=== PATIENT | male | born 1970 | race Caucasian/White ===

== ENCOUNTER 2017-02-14 13:16 | Emergency (ER) | payer MEDICARE, OTHER ==
[~2017-02-14] VITALS: Ht 182.9 cm; Wt 145.0 kg
[~2017-02-14 13:16] MED LIST: 1-ME1LIQ PO; DILA100C; HYDR-2768 PO; TRAM50 PO
[2017-02-14 13:19] VITALS: BP 167/80; PULSE 87; RESP 18; TEMP 98.7; O2SAT 97
--- NOTE | 2017-02-14 13:50 | PD ---
HPI . right great toe blister x 1 day Chief Complaint: Skin Problem Time Seen by Provider: 13:50 Travel History International Travel<30 days: No Contact w/Intl Traveler<30days: No Traveled to known affect area: No History of Present Illness HPI 46-year-old male with history of gout and seizure disorder here with complaints of a right great toe blister that popped up all of a sudden about 1-2 nights ago. Patient says that he noticed his right great toe in the interdigital space seem to be inflamed and irritated. He does not recall stepping on anything or being bitten by an insect. He decided to come to the emergency department for further evaluation as he has difficult time getting in with his primary care provider. He denies any fever or chills. He has no known injuries. He is accompanied by his fiance. He has no other complaints. PFSH Past Medical History Arthritis: No Asthma: No Autoimmune Disease: No Blood Disorders: No Anxiety: No Depression: No Heart Rhythm Problems: No Cancer: Yes (GLIOMA OF THE BRAIN) Cardiovascular Problems: No High Cholesterol: No Chemotherapy: Yes Chest Pain: No Congestive Heart Failure: No COPD: No Cerebrovascular Accident: No Diabetes: No Diminished Hearing: No GERD: No Glaucoma: No Headaches: No Hepatitis: No Hiatal Hernia: No Hypertension: No Kidney Stones: No Musculoskeletal: Yes (DISLOCATED SHOULDER) Neurologic: No Psychiatric: No Reproductive: No Respiratory: No Migraines: Yes Myocardial Infarction: No Radiation Therapy: Yes Renal Failure: No Seizures: Yes Sickle Cell Disease: No Sleep Apnea: No Thyroid Disease: No Ulcer: No Past Surgical History Abdominal Surgery: No AICD: No Cardiac Surgery: No Ear Surgery: No Endocrine Surgery: No Eye Surgery: No Genitourinary Surgery: No Gynecologic Surgery: No Neurologic Surgery: Yes (BRAIN CANCER) Pacemaker: No Thoracic Surgery: No Social History Alcohol Use: No Tobacco Use: Yes (1 PK PER DAY) Substance Use: No Allergies-Medications (Allergen,Severity, Reaction): Coded Allergies: Vilma (Verified Allergy, Intermediate, 07/04/13) ITCHING Reported Meds & Prescriptions Reported Meds & Active Scripts Active Bactrim DS (Sulfamethoxazole-Trimethoprim) 800-160 Mg Tab 1 Tab PO BID Ultram (Tramadol HCl) 50 Mg Tab 1 Tab PO Q6 PRN FOR PAIN Reported 1-Methyl 2-Pyrrolidinone (1-Methyl 2-Pyrrolidone (Bulk)) 10 Mg Tab 10 Mg PO DAILY Hctz (Hydrochlorothiazide) 25 Mg Tab 25 Mg PO DAILY Dilantin Kapseals (Phenytoin Sodium) 100 Mg Cap 900 500MG AM, 400PM Review of Systems General / Constitutional: No: Fever Eyes: No: Visual changes HENT: No: Headaches Cardiovascular: No: Chest Pain or Discomfort Respiratory: No: Shortness of Breath Gastrointestinal: No: Abdominal Pain Genitourinary: No: Dysuria Musculoskeletal: No: Pain Skin: Positive Other (right great toe redness), No Rash Neurologic: No: Weakness Psychiatric: No: Depression Endocrine: No: Polydipsia Hematologic/Lymphatic: No: Easy Bruising Physical Exam Narrative GENERAL: AAO x 3, no acute distress, Well-nourished, well-developed patient. SKIN: Warm and dry. No visible rashes or bruising. Interdigit space between right great toe and second toe is inflamed, erythematous, slightly edematous. There is no evidence of purulence. There seems to be a blister that is going down. Pedal pulse is normal. The area is warm to touch. There is no fluid collection. There is no definitive abscess formation. HEAD: Normocephalic and atraumatic. EYES: No scleral icterus. No injection or drainage. ENT: No nasal drainage noted. Airway patent. NECK: Supple, trachea midline. No JVD. CARDIOVASCULAR: Regular rate and rhythm without murmurs, gallops, or rubs. RESPIRATORY: Breath sounds equal bilaterally. No accessory muscle use. No rhonchi or rales. GASTROINTESTINAL: Normal visual inspection EXTREMITIES: No cyanosis or edema. BACK: Nontender without obvious deformity. No CVA tenderness. PSYCH: AAO x 3, normal affect. Data Data Last Documented VS Vital Signs Date Time Temp Pulse Resp B/P Pulse Ox O2 Delivery O2 Flow Rate FiO2 02/14/17 13:19 98.7 87 18 167/80 97 MDM Medical Decision Making Medical Screen Exam Complete: Yes Emergency Medical Condition: Yes Medical Record Reviewed: Yes Differential Diagnosis cellulitis of right foot, less likely shingles, less likely fungal infection Narrative Course 46-year-old male with history of gout and seizure disorder here with complaints of a right great toe blister that popped up all of a sudden about 1-2 nights ago. Patient says that he noticed his right great toe in the interdigital space seem to be inflamed and irritated. He does not recall stepping on anything or being bitten by an insect. He decided to come to the emergency department for further evaluation as he has difficult time getting in with his primary care provider. He denies any fever or chills. He has no known injuries. He is accompanied by his fiance. He has no other complaints. Patient seen and examined he has a superficial cellulitis to the right foot in the intertriginous space between the right great toe and second toe. Currently it is very mild. I will go ahead and provide him with a course of Bactrim to cover for MRSA. He will need to follow-up with his primary care provider in the next few days. I recommend that he see them on Friday of next week. Being that this is his foot, I've advised him that he needs to see a chicken raiser. I've explained to him that ignoring infections on the foot can lead to loss of limb. He verbalized understanding. Advise if any worsening of infection to return to the emergency department. Ultimately, if he is unable to get up with his primary care provider or chicken raiser, he will return to the ED next week. Patient verbalized understanding of instructions, questions were answered, and thanked me for their care. I advised them if their condition worsens, please return to the nearest emergency room for further care. Diagnosis Primary Impression: Cellulitis of foot, right Referrals: [facility] Patient Instructions: General Instructions Additional Instructions: Please return to emergency department if your symptoms return or worsen. Follow up with your primary care provider. Take medications as prescribed. [place] for worsening signs of infection which include increased fever, redness , increased warmth, purulent drainage, increased swelling or streaking. If any of these develop, please return to the nearest emergency department. See your primary care doctor. You will need to be monitored closely to make sure this infection does not worsen. Please see a chicken raiser as soon as possible. If you cannot get in with podiatry or your primary care doctor by Friday, please return to the emergency department for a wound check. Med/Other Pt SpecificInfo: Prescription(s) given Scripts Sulfamethoxazole-Trimethoprim (Bactrim DS)800-160 Mg Tab1 Tab PO BID #20 TAB Ref 0 Prov:Soontharothai,Rewadee MD 02/14/17 Disposition: 01 DISCHARGE HOME Condition: Stable Hilda Wall Feb 14, 2017 13:50
[2017-02-14] MEDS ORDERED: BACT800T5 PO (13:56)
== END 2017-02-14 14:05 | disposition home or self-care (01) ==
LOC: NEPK 13:16
DX: L03.115 Cellulitis of right lower limb (principal)
CPT/HCPCS: 99282